=== PATIENT | male | born 1955 | race Caucasian/White ===

== ENCOUNTER → 2021-08-07 | Emergency (ER) | payer OTHER, MEDICARE, SELFPAY ==
[~2021-08-07] VITALS: Ht 182.9 cm; Wt 113.4 kg
[2021-08-07 14:45] VITALS: BP_SYST 154
--- NOTE | 2021-08-07 14:45 | NUR ---
BROUGHT BACK TO BED #4 AND TRIAGED, REPORT GIVEN TO BERNICE
--- NOTE | 2021-08-07 14:45 | NUR ---
Pt ambulatory to room 4. Reporting a forehead laceration and L wrist pain s/p trip and fall over a garden hose. Denies LOC, but does report he felt dizzy. BP elevated when checked. Addendum: 08/07/21 at 1459 by [email or web address] *Pt awake, alert and oriented x 3. Awaiting MD diaz.
--- NOTE | 2021-08-07 14:51 | NUR ---
Pt aware he is awaiting MD diaz; walking toward waiting room to give his information. Redirected to his room.
--- NOTE | 2021-08-07 15:13 | NUR ---
Irrigated the would with 0.9% NS. Covered w. a wet to dry dressing. Pt. presents w. a 1" supperficial would to the left eyebrow. States that he doesn't want stitches and his left wrisk is hurtting. He is giving his wrisk pain a 7.
--- NOTE | 2021-08-07 15:26 | NUR ---
Dr So placed orders for patient
--- NOTE | 2021-08-07 15:35 | NUR ---
XRays completed at bedside
--- NOTE | 2021-08-07 15:57 | NUR ---
Pt transported to CT scan via wheelchair
--- NOTE | 2021-08-07 16:47 | NUR ---
Dr So to bedside to re-evaluate patient
--- NOTE | 2021-08-07 17:35 | NUR ---
Patient given written and verbal discharge instructions and verbalizes understanding. ER MD discussed with patient the results and treatment provided. Patient in stable condition. ID arm band removed. Patient educated on pain management and to follow up with PMD. Pain improved. Opportunity for questions provided and answered. Medication side effect fact sheet provided.
[2021-08-07 17:37] VITALS: BP_SYST 154
--- NOTE | 2021-08-07 17:40 | NUR ---
Treated pt. with DERMABOND and Steri-Strip.
--- NOTE | 2021-08-07 17:41 | NUR ---
Placed a Thum Spika on Pt's left forearm.
== END | disposition home or self-care (01) ==
LOC: SED 14:40
DX: S01.112A Laceration without foreign body of left eyelid and periocular area, initial encounter (principal); S63.502A Unspecified sprain of left wrist, initial encounter; R51.9 Headache, unspecified; W17.89XA Other fall from one level to another, initial encounter; Y93.9 Activity, unspecified; Y92.9 Unspecified place or not applicable; Y99.9 Unspecified external cause status; Z88.1 Allergy status to other antibiotic agents; Z88.6 Allergy status to analgesic agent
CPT/HCPCS: 70450-TC; 76376; 99283; 99284